=== PATIENT | male | born 1975 | race Caucasian/White ===

== ENCOUNTER 2017-02-06 10:49 | Emergency (ER) | payer SELFPAY ==
[2017-02-06] MEDS ORDERED: Sodium Chloride 0.9% 1,000 ML IV ONE (11:25)
--- NOTE | 2017-02-06 11:54 | EDM.PDOC ---
ED HPI GI/ABDOMINAL - General Chief Complaint: Abdominal Pain Stated Complaint: ABD PAIN AND BLACK STOOL Time Seen by Provider: 02/06/17 11:25 Source of Information: Reports: Patient History Limitations: Reports: No limitations - History of Present Illness INITIAL COMMENTS - FREE TEXT/NARRATIVE: HISTORY AND PHYSICAL: History of present illness: [Patient comes to the emergency room complaining of lower abdominal discomfort and black stools. Symptoms have been present for the past week but are not worsening. He recently moved to to [place] for the summer from [place], where he has a PCP. Does not have a local primary care provider. Admits a history of hypertension but he stopped taking medication for it when he ran out of refills. He takes a daily medication for acid reflux. Denies any history of GI bleed. No recent hospitalizations. He's had no vomiting or nausea but has noticed a decreased appetite. No fever or chills. Describes a cramping sensation to his mid and lower abdomen. He had a bowel movement this morning which was black and loose in consistency. He has not noticed any gross red blood in his stools. No burning with urination, hematuria or urinary urgency. No recent illnesses, infection or injury. Admits drinking fortified beers every night. He states that he has had pancreatitis in the past but this did not require hospitalization. He switched to a totally clear liquid diet and all his symptoms resolved.] Review of systems: As per history of present illness and below otherwise all systems reviewed and negative. Past medical history: As per history of present illness and as reviewed below otherwise noncontributory. Surgical history: As per history of present illness and as reviewed below otherwise noncontributory. Social history: No reported history of drug or alcohol abuse. Family history: As per history of present illness and as reviewed below otherwise noncontributory. Physical exam: HEENT: Atraumatic, normocephalic. TMs are pearly hernandez. Oral mucous membranes are pink and moist no tonsillar swelling erythema or exudate. Wears glasses. neck supple, nontender, no lymphadenopathy. Lungs: Clear to auscultation, breath sounds equal bilaterally. Heart: S1S2, regular, negative for clicks, rubs, murmur, or JVD. Abdomen: Bowel sounds are normoactive throughout. Abdomen is soft Soft, nondistended. He is tender with palpation over the left upper quadrant and throughout his lower abdomen. Negative for masses, guarding or rebound or hepatosplenomegaly. Negative for costovertebral tenderness. Pelvis: Stable nontender. Genitourinary: Deferred. Rectal: Normal sphincter tone. No hemorrhoids or abnormalities noted. Scant amount of hernandez colored stool from rectum. SFOB negative. Extremities: Atraumatic, no cyanosis or edema. Neurovascular unremarkable. Neuro: Awake, alert, oriented. Cranial nerves II through XII unremarkable. Exam nonfocal. Diagnostics: [CBC, CMP, amylase, lipase, UA, CT abdomen and pelvis with contrast ] Therapeutics: [1 L normal saline] Impression: [abdominal pain] Plan: [Lipase is mildly elevated at 91. CT abd and pelvis shows no acute disease. Moderate thickening of stomach wall. Discussed with patient that he may have some ulcers that is causing his discomfort. Recommend he establish care with a local primary care provider and get scheduled for an EGD. He is given contact information. Encouraged him to take omeprazole 20 mg twice a day until followup. Avoid alcohol greasy fatty foods. Return to ER as needed as discussed. All his questions are answered and concerns are addressed. He is in agreement with today's plan. ] Definitive disposition and diagnosis as appropriate pending reevaluation and review of above. - Related Data Allergies/ADRs: Allergies Allergy/AdvReac Type Severity Reaction Status Date / Time No Known Allergies Allergy Verified 02/06/17 11:02 Home Meds: Home Meds . [Unable to Verify Home Med List] 02/06/17 [History] Past Medical History - Past Health History Medical/Surgical History: Denies Medical/Surgical History HEENT History: Reports: Impaired vision Other HEENT History: wears eyeglasses Cardiovascular History: Reports: Hypertension, Other (see below) Other Cardiovascular History: Not on medication Gastrointestinal History: Reports: Other (see below) Other Gastrointestinal History: heartburn - Infectious Disease History Infectious Disease History: Reports: Chicken pox - Past Surgical History GI Surgical History: Reports: Other (see below) Other GI Surgeries/Procedures: Abdominal surgery Social & Family History - Family History Family Medical History: Noncontributory - Tobacco Use Smoking Status *Q: Never Smoker - Caffeine Use Caffeine Use: Reports: None - Recreational Drug Use Recreational Drug Use: No ED ROS GENERAL - Review of Systems Review Of Systems: ROS reveals no pertinent complaints other than HPI. ED EXAM, GI/ABD - Physical Exam Exam: See Below Course - Vital Signs Last Recorded V/S: Last Vital Signs Temp 98.6 F 02/06/17 12:30 Pulse 78 02/06/17 14:30 Resp 16 02/06/17 14:30 BP 137/80 02/06/17 14:30 Pulse Ox 98 02/06/17 14:30 - Orders/Labs/Meds Orders: Active Orders 24 hr Category Date Time Status Abdomen Pelvis w Cont [CT] Stat Exams 02/06/17 12:44 Taken Labs: Laboratory Tests 02/06/17 02/06/17 02/06/17 Range/Units 11:35 11:35 11:35 WBC 10.76 (4.0-11.0) K/uL RBC 4.46 L (4.50-5.90) M/uL Hgb 14.5 (13.0-17.0) g/dL Hct 43.8 (38.0-50.0) % MCV 98.2 H (80.0-98.0) fL MCH 32.5 H (27.0-32.0) pg MCHC 33.1 (31.0-37.0) g/dL RDW Std Deviation 50.9 (28.0-62.0) fl RDW Coeff of [place] 14 (11.0-15.0) % Plt Count 325 (150-400) K/uL MPV 9.60 (7.40-12.00) fL Neut % (Auto) 68.4 (48.0-80.0) % Lymph % (Auto) 22.6 (16.0-40.0) % [place] % (Auto) 7.9 (0.0-15.0) % Eos % (Auto) 0.9 (0.0-7.0) % Baso % (Auto) 0.2 (0.0-1.5) % Neut # (Auto) 7.4 H (1.4-5.7) K/uL Lymph # (Auto) 2.4 (0.6-2.4) K/uL [place] # (Auto) 0.9 H (0.0-0.8) K/uL Eos # (Auto) 0.1 (0.0-0.7) K/uL Baso # (Auto) 0.0 (0.0-0.1) K/uL Nucleated RBC % 0.0 /100WBC Nucleated RBCs # 0 K/uL Sodium 140 (136-146) mmol/L Potassium 4.6 (3.5-5.1) mmol/L Chloride 104 (98-110) mmol/L Carbon Dioxide 23 (21-31) mmol/L BUN 19 (6.0-23.0) mg/dL Creatinine 1.0 (0.6-1.5) mg/dL Est Cr Clr Drug Dosing 79.76 mL/min Estimated GFR (MDRD) > 60.0 ml/min Glucose 153 H (60-110) mg/dL Calcium 9.4 (8.8-10.8) mg/dL Total Bilirubin 0.3 (0.1-1.5) mg/dL AST 16 (5-40) IU/L ALT 15 (8-54) IU/L Alkaline Phosphatase 75 (40-150) Total Protein 7.8 (6.0-8.0) g/dL Albumin 4.5 (3.5-5.0) g/dL Globulin 3.3 (2.0-3.5) g/dL Albumin/Globulin Ratio 1.4 (1.3-2.8) Amylase 52 (10-90) U/L Lipase 91 H (7-80) U/L Urine Color YELLOW Urine Appearance CLEAR Urine pH 6.0 (5.0-8.0) Ur Specific [place] 1.025 (1.001-1.035) Urine Protein 30 (NEGATIVE) mg/dL Urine Glucose (UA) NEGATIVE (NEGATIVE) mg/dL Urine Ketones NEGATIVE (NEGATIVE) mg/dL Urine Occult Blood NEGATIVE (NEGATIVE) Urine Nitrite NEGATIVE (NEGATIVE) Urine Bilirubin NEGATIVE (NEGATIVE) Urine Urobilinogen 0.2 (<2.0) EU/dL Ur Leukocyte Esterase NEGATIVE (NEGATIVE) Urine RBC 0-1 (0-2/HPF) Urine WBC 0-1 (0-5/HPF) Ur Epithelial Cells RARE (NONE-FEW) Urine Bacteria RARE (NEGATIVE) Meds: Medications Discontinued Medications Generic Name Dose Route Start Last Admin Trade Name Freq PRN Reason Stop Dose Admin Sodium Chloride 1,000 mls @ 999 mls/hr 02/06/17 11:25 02/06/17 11:33 Normal Saline IV 02/06/17 12:25 999 mls/hr STAT ONE Administration Iopamidol 100 ml 02/06/17 16:00 02/06/17 16:03 Isovue-370 (76%) IVPUSH 02/06/17 16:01 100 ml ONETIME ONE Administration Departure - Departure Time of Disposition: 14:20 Disposition: Home, Self-Care 01 Condition: good Clinical Impression: Abdominal pain Qualifiers: Abdominal location: generalized Qualified Code(s): R10.84 - Generalized abdominal pain Instructions: Abdominal Pain, Adult, [id number] Referrals: PCP,None [Primary Care Provider] - Forms: ED Department Discharge Additional Instructions: The following information is given to patients seen in the emergency department who are being discharged to home. This information is to outline your options for follow-up care. We provide all patients seen in our emergency department with a follow-up referral. The need for follow-up, as well as the timing and circumstances, are variable depending upon the specifics of your emergency department visit. If you don't have a primary care physician on staff, we will provide you with a referral. We always advise you to contact your personal physician following an emergency department visit to inform them of the circumstance of the visit and for follow-up with them and/or the need for any referrals to a consulting specialist. The emergency department will also refer you to a specialist when appropriate. This referral assures that you have the opportunity for follow-up care with a specialist. All of these measure are taken in an effort to provide you with optimal care, which includes your follow-up. Under all circumstances we always encourage you to contact your private physician who remains a resource for coordinating your care. When calling for follow-up care, please make the office aware that this follow-up is from your recent emergency room visit. If for any reason you are refused follow-up, please contact the [facility] emergency department at and asked to speak to the emergency department charge nurse. [facility] [address] [place] [id number] It is important that you establish care with a local primary care provider. Contact the above listed phone number to schedule an appointment within the next one week. You need to have a EGD or a scope of your stomach completed. Take omeprazole 20 mg twice daily. Return to ER as needed as discussed. - My Orders Last 24 Hours: My Active Orders 02/06/17 12:44 Abdomen Pelvis w Cont [CT] Stat - Assessment/Plan Last 24 Hours: My Active Orders 02/06/17 12:44 Abdomen Pelvis w Cont [CT] Stat
[2017-02-06 12:07] LABS: CHLORIDE,CL 104 mmol/L (98-110); SODIUM,NA 140 mmol/L (136-146)
[2017-02-06 14:32] VITALS: BP 137/80
[2017-02-06] MEDS ORDERED: Iopamidol 755 Mg/ML 100 ML Bottle IVPUSH ONE (16:00)
--- NOTE | 2017-02-07 11:03 | CT ---
EXAM DATE: 02/06/17 PATIENT'S AGE: 41 Patient: GRECIA MCCLURE Facility: [place], [place] Site . Site : 1975 Study: CT Abdomen/Pelvis [id number] 1:13:07 PM Ordering Physician: Doctor Carver Final Report: INDICATION: Abdominal pain. Black stools. Technique: CT abdomen and pelvis after the IV injection of 100 mL of Isovue-370. Findings: Small sclerotic foci in left iliac bone likely benign bone islands. Scarring and linear atelectasis in the right lung base anteriorly and posteriorly. Ill- defined low-density with calcifications extending along the mid to upper liver could be related to fluid and low-density change within a cleft within the liver or related to a prior procedure the liver such procedure has been performed in the past. Wedge-shaped area of low density along the right hepatic lobe laterally on image 27 is nonspecific and may be of similar etiology to the other low-density change within the liver. Few tiny cysts in the kidneys. The wall of the urinary bladder is slightly irregular and thickened. The appendix is normal. The wall of the stomach is moderately thickened however the stomach is not well distended and thus cannot be optimally assessed. Minimal hazy increased density in the midline the anterior pelvic wall subcutaneous tissues. Remainder negative. Impression: 1. No acute disease in abdomen or pelvis. 2. Moderate thickening of the wall of the stomach diffusely cannot be optimally assessed on this exam due to incomplete distention of the stomach. 3. Tract of low-density with calcifications extending along the mid and upper liver could be related to fluid and calcifications within a cleft within the liver or there has been prior procedure in this location could be postprocedural. Small area of wedge-shaped low density in the right hepatic lobe laterally is also nonspecific. Other findings as above. Dictated by Darvin Garcia MD @ Feb 06 2017 1:56PM (Electronic Signature) Report Signed by Proxy and Original Signed Document filed in the Medical Record. [facility]
== END 2017-02-06 14:33 | disposition home or self-care (01) ==
LOC: MW.ED 10:49
DX: K92.1 Melena (principal); R10.84 Generalized abdominal pain; I10 Essential (primary) hypertension; Z98.890 Other specified postprocedural states
CPT/HCPCS: 36415; 74177; 80053; 81001; 82150; 83690; 85025; 96360; 99284; J7040; Q9967; 99283